=== PATIENT | female | born 1965 | race Caucasian/White ===

== ENCOUNTER 2017-05-01 10:33 | Day surgery (SDC) | payer BC ==
--- NOTE | 2017-05-01 08:42 | PCM.HP ---
H&P History of Present Illness - General Date of Service: 05/01/17 Admit Problem/Dx: small umbilical hernia, left periumbilical pain, family hx of colon cancer in sister, hx of nausea, hx of decreased appetite, hx of postprandial nausea with fatty meals, hx of upper abdominal pain, hx of lower abdominal pain, hx of elevated liver enzymes and elevated bilirubin, Uterine fibroids, adnexal cyst on abdomen/pelvis CT scans, thickened endometrium on TVUS Source of Information: Patient - History of Present Illness Initial Comments - Free Text/Narative: The patient was last evaluated in the clinic on 03/28/17. She denies any changes to her health history since her last visit, with the following exceptions. She reports that 8-10 days after the visit she started feeling normal again. No abdominal pain reported, has had resolution of this. No melenic stools. Her appetite is back to normal. She denies any nausea. She did finish the colonoscopy prep. She reports it did take 3-4 hours to work and did get nauseated with this, but then did have good results and resolution of nausea. She reports stools were clear this am. TVUS showed, "Multiple uterine fibroids, the largest measuring 29 x 26 mm.The endometrium is thickened measuring 25 mm. Consider hysteroscopy to exclude endometrial cancer." She has been evaluated by Dr. Kay and has a hysteroscopy and D&C planned today. She has no questions or concerns about procedure today. - Related Data Allergies/Adverse Reactions: Allergies Allergy/AdvReac Type Severity Reaction Status Date / Time No Known Allergies Allergy Verified 04/30/17 17:26 Home Medications: Home Meds Calcium Carb & Citrate/Vit D3 [Calcium + D3 ER Tablet] 1 tab PO DAILY 04/30/17 [ History] Fish Oil/[place]-3 Fatty Acids [Fish Oil 1,000 MG] 1,000 mg PO DAILY 04/30/17 [ History] Multivitamin [Multivitamins] 1 tab PO DAILY 04/30/17 [History] Zolpidem Tartrate [Zolpidem Tartrate] 5 mg PO BEDTIME PRN 04/30/17 [History] valACYclovir HCl [Valacyclovir] 500 mg PO ASDIRECTED PRN 04/30/17 [History] Past Medical History HEENT History: Reports: None Cardiovascular History: Reports: None Respiratory History: Reports: None Gastrointestinal History: Reports: Other (See Below) Other Gastrointestinal History: nausea, upper abominal pain, increased liver enzymes, increased bilirubin, umbilical hernia 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 History: Reports: Other (See Below) Other 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 History: 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 (See Below) Other OB/BYN History: breast pain Musculoskeletal History: Reports: None Neurological History: Reports: None Psychiatric History: Reports: Other (See Below) Other Psychiatric History: insomnia, fatigue Endocrine/Metabolic History: Reports: Other (See Below) Other Endocrine/Metabolic History: abnormal glucose Hematologic History: Reports: None Immunologic History: Reports: None Oncologic (Cancer) History: Reports: None Dermatologic History: Reports: Other (See Below) Other Dermatologic History: cold sores, skin rash - Past Surgical History Head Surgeries/Procedures: Reports: None GI Surgical History: Reports: Colonoscopy Female Surgical History: Reports: Breast Reduction Social & Family History - Tobacco Use Smoking Status *Q: Never Smoker - Caffeine Use Caffeine Use: Reports: None - Recreational Drug Use Recreational Drug Use: No Drug Use in Last 12 Months: No H&P Review of Systems - Review of Systems: Review Of Systems: See Below Free Text/Narrative: General: Reports: No Symptoms. Denies: Fever, Chills HEENT: Reports: No Symptoms Pulmonary: Reports: No Symptoms. Denies: Shortness of Breath, Wheezing Cardiovascular: Reports: No Symptoms. Denies: Chest Pain, Palpitations Gastrointestinal: Reports: No Symptoms. Denies: Abdominal Pain, Black Stool, Bloody Stool, Constipation, Diarrhea, Decreased Appetite, Hematochezia, Melena, Nausea, Vomiting 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: Reports: No Symptoms. Denies: Dysuria, Frequency, Burning, Pain Musculoskeletal: Reports: No Symptoms Skin: Reports: No Symptoms Psychiatric: Reports: No Symptoms Neurological: Reports: No Symptoms Hematologic/Lymphatic: Reports: No Symptoms Immunologic: Reports: No Symptoms Exam - Exam Exam: See Below - Exam General: Alert, Oriented HEENT: Conjunctiva Clear. No: Scleral Icterus Lungs: Clear to Auscultation, Normal Respiratory Effort Cardiovascular: Regular Rate, Regular Rhythm, Normal S1, Normal S2. No: Systolic Murmur, Diastolic Murmur Abdomen: Soft. No: Distention, Tenderness Extremities: Normal Inspection, Normal Pulses. No: Clubbing, Cyanosis, Edema Skin: Warm, Dry, Intact Neuro Extensive - Mental Status: Alert, Oriented x3, Normal Mood/Affect, Normal Cognition, Memory Intact Psychiatric: Alert, Normal Affect, Normal Mood *Q Meaningful Use (ADM) - VTE *Q VTE Criteria *Q: - Stroke *Q Stroke Criteria *Q: - AMI *Q AMI Criteria *Q: - Problem List (1) Periumbilical pain Status: Acute Current Visit: Yes (2) Family history of colon cancer SNOMED Code(s): 171501578 ICD Code: Z80.0 - FAMILY HISTORY OF MALIGNANT NEOPLASM OF DIGESTIVE ORGANS Status: Acute Current Visit: Yes (3) History of nausea SNOMED Code(s): 408173396 ICD Code: Z87.898 - PERSONAL HISTORY OF OTHER SPECIFIED CONDITIONS Status: Acute Current Visit: Yes (4) Decreased appetite SNOMED Code(s): 26339512 ICD Code: R63.0 - ANOREXIA Status: Acute Current Visit: Yes (5) Postprandial nausea SNOMED Code(s): 575676750 ICD Code: R11.0 - NAUSEA Status: Acute Current Visit: Yes (6) Abdominal pain SNOMED Code(s): 38559918 ICD Code: R10.9 - UNSPECIFIED ABDOMINAL PAIN Status: Acute Current Visit : Yes Problem List Initiated/Reviewed/Updated: Yes Orders Last 24hrs: Active Orders 24 hr Category Date Time Status Peripheral IV Care [RC] . DIRECTED Care 05/01/17 07:00 Active Verify Patient Consent Obtain [RC] ASDIRECTED Care 05/01/17 07:00 Active Lactated Ringers [Ringers, Lactated] 1,000 ml Med 05/01/17 07:00 Active IV ASDIRECTED Lidocaine 1%/Sod Bicarbonate [Buffered Lidocaine 1% in Med 05/01/17 07:00 Active NS 8.4%] 0.25 ml IV ONETIME PRN Sodium Chloride 0.9% [Saline Flush] Med 05/01/17 07:00 Active 10 ml FLUSH ASDIRECTED PRN Medication Administration Instruction [OM.PC] Routine Oth 05/01/17 07:00 Ordered Peripheral IV Insertion Adult [OM.PC] Routine Oth 05/01/17 07:00 Ordered Medication Orders Lactated Ringer's (Ringers, Lactated) 1,000 mls @ 125 mls/hr IV ASDIRECTED RUSLAN Stop: 05/01/17 23:00 Lidocaine/Sodium Bicarbonate (Buffered Lidocaine 1% In Ns 8.4%) 0.25 ml IV ONETIME PRN PRN Reason: Prior to IV Start Stop: 05/01/17 18:00 Sodium Chloride (Saline Flush) 10 ml FLUSH ASDIRECTED PRN PRN Reason: Keep Vein Open Stop: 05/01/17 18:00 Assessment/Plan Comment:: 51yr female with small umbilical hernia, left periumbilical pain, family hx of colon cancer in sister, hx of nausea, hx of decreased appetite, hx of postprandial nausea with fatty meals, hx of upper abdominal pain, hx of lower abdominal pain, hx of elevated liver enzymes and elevated bilirubin, need for diagnostic EGD and diagnostic colonoscopy. We discussed performing a diagnostic EGD and diagnostic colonoscopy. We discussed the risks and benefits of colonoscopy and EGD including pain, bleeding , need for additional procedures, damage to surrounding structures including colonic, esophageal or small bowel perforation risk of less than 1%, and risks of anesthesia. Informed consent was obtained. We discussed completion of the colonoscopy prep. Verbal and written instructions regarding the prep were reviewed Dr. Jere Kay will be performing a hysteroscopy with dilation and currettage today This patient was evaluated with Dr. Lili Carrillo, plan formulated above by Dr. Lili Carrillo. Melba Tomlin NP-C scribing for Dr. Lili Carrillo
--- NOTE | 2017-05-01 09:00 | PCM.OPNOTE ---
- General Post-Op/Procedure Note Date of Surgery/Procedure: 05/01/17 Operative Procedure(s): 1. Diagnostic EGD with cold forceps biopsy. 2. Diagnostic colonoscopy with cold forceps polypectomy Pre Op Diagnosis: History of abdominal pain, family history of colon cancer in sister, history of nausea Post-Op Diagnosis: 1. Mild gastritis. 2. Duodenitis (D1 and D2 only). 3. Mild esophagitis. 4. Diverticulosis. 5. Rectosigmoid colon polyp Anesthesia Technique: MAC Primary Surgeon: Lili Carrillo Anesthesia Provider: Vince Hawthorne Pathology: 1. Small bowel biopsy 2. Antral biopsy 3. Distal esophageal biopsy 4. Rectosigmoid colon polyp EBL in mLs: 2 Complications: None Condition: Good Free Text/Narrative:: FLUIDS: 250 mL crystalloid. INDICATION FOR PROCEDURE: The patient is a 51-year-old woman who was referred to me by Graciela Burgos PA-C for evaluation for left lower quadrant abdominal pain, right upper quadrant abdominal pain, post-prandial nausea and hematochezia. She also has a family history of colon cancer in her sister. She has not had a previous colonoscopy. Performing a diagnostic colonoscopy and EGD and the associated risks of the procedures had been discussed with the patient. The patient found these risks acceptable and agreed to proceed. DESCRIPTION OF PROCEDURE: The patient was taken to the operating room and underwent gynecologic procedures with Dr. Jere Kay. Please see his note for further details. When he had concluded his portions of the procedure, the patient was placed in the left lateral decubitus position. A bite block was placed. A standard Olympus gastroscope was inserted into the oropharynx and guided down the esophagus without difficulty. The gastroesophageal junction was appreciated at 39 cm from the teeth. There was no evidence of stricture or esophageal ulcerations. The scope was advanced into the stomach, and there was mild gastritis. The scope was passed into the proximal jejunum and the duodenum which showed mild duodenitis of D1 and D2 only with scattered petechiae. There were no ulcerations. The proximal jejunum was grossly normal in appearance. Multiple cold forceps biopsies were obtained of the proximal jejunum and duodenum. The scope was withdrawn into the antrum, and additional cold forceps biopsies were obtained. The remainder of the gastric body was examined, and there were no additional abnormalities. The scope was retroflexed , and there was no evidence of hiatal hernia. The scope was straightened and withdrawn to the GE junction. There was mild esophagitis with some irregularity of the Z-line. Additional cold forceps biopsies were obtained of the distal esophagus. The scope was withdrawn through the remainder of the esophagus and no further abnormalities were noted. The posterior oropharynx was grossly normal in appearance. The scope was fully withdrawn and attention was then turned to the colonoscopy. A digital rectal exam was performed which was unremarkable. A pediatric Olympus colonoscope was inserted into the rectum and guided under direct visualization to the appendiceal orifice and ileocecal valve. The scope was then slowly withdrawn through the colon. The quality of the prep was good. There was no evidence of angiodysplasias. There was diverticulosis of the descending and sigmoid colon with no evidence of diverticulitis. There was a small sessile rectosigmoid colon polyp which was removed in its entirety using cold forceps. The scope was withdrawn into the rectum and retroflexed. There was no significant prominence of the patient's internal hemorrhoids. The scope was straightened, the colon was desufflated,and the scope was withdrawn. The patient was awakened from sedation and transferred to the recovery room in stable condition having tolerated the procedure well. POSTOPERATIVE PLAN: I discussed with the patient's my intraoperative findings and recommendations. The patient will follow up in approximately 2 weeks to discuss pathology and how their symptoms are progressing. I have asked the patient to follow a GERD\gastritis and high fiber diet. We have started her on omeprazole 20 mg daily. The patient is to call with any worsening of symptoms or questions prior to the appointment.
[~2017-05-01 10:33] MED LIST: Lactated Ringers 1,000 ML IV SCH; Lidocaine 1%/Sod Bicarbonate in NS 8.4% 1 ML Syringe IV PRN; Sodium Chloride 0.9% 10 ML Syringe FLUSH PRN
--- NOTE | 2017-05-01 11:05 | PCM.PREANE ---
Preanesthetic Assessment - Procedure Proposed Procedure: Hysteroscopy/EGD/Colonoscopy - Anesthesia/Transfusion/Family Hx Anesthesia History: Prior Anesthesia Without Reaction Family History of Anesthesia Reaction: No Transfusion History: No Prior Transfusion(s) - Review of Systems General: Fatigue (Generalized) Pulmonary: No Symptoms Cardiovascular: No Symptoms Gastrointestinal: Other (Upper abdominal pain, umbilical hernia) Neurological: No Symptoms Other: Reports: Liver Problems (Increased liver enzymes and bilirubin) - Physical Assessment NPO Status Date: 05/01/17 NPO Status Time: 00:00 Pulse: 57 O2 Sat by Pulse Oximetry: 98 Respiratory Rate: 16 Blood Pressure: 152/79 Temperature: 36.4 C Height: 1.7 m Weight: 77 kg ASA Class: 2 Mental Status: Alert & Oriented x3 Airway Class: Mallampati = 2 Dentition: Reports: Normal Dentition Thyro-Mental Finger Breadths: 3 Mouth Opening Finger Breadths: 3 ROM/Head Extension: Full Lungs: Clear to auscultation, Normal respiratory effort Cardiovascular: Regular Rate, Regular Rhythm, No Murmurs - Allergies Allergies/Adverse Reactions: Allergies Allergy/AdvReac Type Severity Reaction Status Date / Time No Known Allergies Allergy Verified 04/30/17 17:26 - Blood Blood Available: No Product(s) Available: None - Anesthesia Plan Pre-Op Medication Ordered: None - Acknowledgements Anesthesia Type Planned: General Anesthesia Pt an Appropriate Candidate for the Planned Anesthesia: Yes Alternatives and Risks of Anesthesia Discussed w Pt/Guardian: Yes Pt/Guardian Understands and Agrees with Anesthesia Plan: Yes PreAnesthesia Questionnaire HEENT History: Reports: None Cardiovascular History: Reports: None Respiratory History: Reports: None Gastrointestinal History: Reports: Other (See Below) Other Gastrointestinal History: nausea, upper abominal pain, increased liver enzymes, increased bilirubin, umbilical hernia 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 History: Reports: Other (See Below) Other 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 History: 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 (See Below) Other OB/BYN History: breast pain Musculoskeletal History: Reports: None Neurological History: Reports: None Psychiatric History: Reports: Other (See Below) Other Psychiatric History: insomnia, fatigue Endocrine/Metabolic History: Reports: Other (See Below) Other Endocrine/Metabolic History: abnormal glucose Hematologic History: Reports: None Immunologic History: Reports: None Oncologic (Cancer) History: Reports: None Dermatologic History: Reports: Other (See Below) Other Dermatologic History: cold sores, skin rash - Past Surgical History Head Surgeries/Procedures: Reports: None GI Surgical History: Reports: Colonoscopy Female Surgical History: Reports: Breast Reduction - SUBSTANCE USE Smoking Status *Q: Never Smoker Days Per Week of Alcohol Use: 1 Number of Drinks Per Day: 2 Total Drinks Per Week: 2 Recreational Drug Use History: No - HOME MEDS Home Medications: Home Meds Calcium Carb & Citrate/Vit D3 [Calcium + D3 ER Tablet] 1 tab PO DAILY 04/30/17 [ History] Fish Oil/[place]-3 Fatty Acids [Fish Oil 1,000 MG] 1,000 mg PO DAILY 04/30/17 [ History] Hydrocodone/Acetaminophen [Hydrocodone-Acetaminophen 5-325] 1 tab PO Q4H PRN 05/11 [History] Multivitamin [Multivitamins] 1 tab PO DAILY 04/30/17 [History] Zolpidem Tartrate [Zolpidem Tartrate] 5 mg PO BEDTIME PRN 04/30/17 [History] valACYclovir HCl [Valacyclovir] 500 mg PO ASDIRECTED PRN 04/30/17 [History] - CURRENT (IN HOUSE) MEDS Current Meds: Current Medications Lactated Ringer's (Ringers, Lactated) 1,000 mls @ 125 mls/hr IV ASDIRECTED RUSLAN Stop: 05/01/17 23:00 Lidocaine/Sodium Bicarbonate (Buffered Lidocaine 1% In Ns 8.4%) 0.25 ml IV ONETIME PRN PRN Reason: Prior to IV Start Stop: 05/01/17 18:00 Sodium Chloride (Saline Flush) 10 ml FLUSH ASDIRECTED PRN PRN Reason: Keep Vein Open Stop: 05/01/17 18:00
[2017-05-01] MEDS ORDERED: fentaNYL 250 MCG/5 ML SDV ONE (11:34)
[2017-05-01] MEDS ORDERED: Propofol 200 MG/20 ML SDV ONE (11:34)
[2017-05-01] MEDS ORDERED: Midazolam 1 MG/ML 2 ML SDV ONE (11:34)
[2017-05-01] MEDS ORDERED: Ondansetron 4 MG/2 ML SDV ONE (11:36)
[2017-05-01] MEDS ORDERED: Succinylcholine/Normal Saline 100 MG/5 ML Syringe ONE (11:36)
[2017-05-01] MEDS ORDERED: Dexamethasone 4 MG/ML 5 ML MDV ONE (11:36)
[2017-05-01] MEDS ORDERED: Lidocaine 1% 4 ML ONE (11:36)
[2017-05-01] MEDS ORDERED: ceFAZolin 1 GM Vial ONE (12:23)
[2017-05-01] MEDS ORDERED: Lactated Ringers 1,000 ML ONE (12:36)
[2017-05-01] MEDS ORDERED: diphenhydrAMINE 50 MG/ML SDV IVPUSH PRN (12:47)
[2017-05-01] MEDS ORDERED: Ondansetron 4 MG/2 ML SDV IVPUSH PRN (12:47)
[2017-05-01] MEDS ORDERED: fentaNYL 100 MCG/2 ML SDV IVPUSH PRN (12:47)
--- NOTE | 2017-05-01 13:30 | PCM.POSTAN ---
POST ANESTHESIA ASSESSMENT - MENTAL STATUS Mental Status: alert, oriented - VITAL SIGNS Pulse Rate: 79 SaO2: 97 Resp Rate: 9 Blood Pressure: 153/79 Temperature: 36.1 C - RESPIRATORY Respiratory Status: respiratory rate WNL, airway patent, O2 saturation stable - CARDIOVASCULAR CV Status: pulse rate WNL, blood pressure stable - GASTROINTESTINAL GI Status: no symptoms - PAIN Pain Score: 0 - POST OP HYDRATION Hydration Status: adequate & stable
[2017-05-01] MEDS ORDERED: Meperidine PF 50 MG/ML Syringe IVPUSH PRN (14:00)
[2017-05-01 14:31] VITALS: BP 146/71
--- NOTE | 2017-05-06 18:04 | PCM.OPNOTE ---
- General Post-Op/Procedure Note Date of Surgery/Procedure: 05/01/17 Operative Procedure(s): Hysteroscopy, dilation and curettage Findings: Small polypoid structures within the uterus. Bimanual exam otherwise shows uterine enlargement uterine fibroids. No adnexal abnormalities noted. Pre Op Diagnosis: Menorrhagia, uterine fibroids Post-Op Diagnosis: Same with endometrial polyps Anesthesia Technique: General ET tube Primary Surgeon: Jere Kay Pathology: Endometrial curettings Complications: None Condition: Good Free Text/Narrative:: Procedure: Patient is taking Apri and placed in supine position on the table. She was given 2 g of Ancef preoperatively for infection prophylaxis and had sequential compression stockings in place for DVT prophylaxis. She is administered general endotracheal anesthesia. After adequate anesthesia she is placed in a dorsal lithotomy position and prepped and draped in usual fashion. The weighted speculum place in the vagina cervix is grasped with single-tooth tenaculum and dilated to the 5 mm size to allow a rigid 30 hysteroscope. This is then placed and using normal saline as a distending medium the endometrial cavity was assessed. No sub-endometrial fibroids were seen but a couple small endometrial polyps were present. Tubal ostia were visualized. The scope was then removed. Dilation and curettage was then performed. Cervix dilated small amount more to allow a medium-sized sharp curette to be introduced. Using a curette in a routine fashion systematic curettage of the endometrial cavity was then undertaken. This included removal of some small segments of tissue consistent with uterine polyps. At this point the procedure was discontinued. Patient was returned sponge addition after the cervix was released from the tenaculum. She is awakened from general endotracheal anesthesia only after Dr. Raya Carrillo completed her EGD and colonoscopy. Please see her operative report for details concerning the end of the case.
== END 2017-05-01 14:55 | disposition home or self-care (01) ==
LOC: JD.SDS 10:33
PROVIDERS: ATTEND Obstetrics & Gynecology
PROC: 0UDB8ZX Extraction of Endometrium, Via Natural or Artificial Opening Endoscopic, Diagnostic (ICD-10-PCS; principal; 2017-05-01)
DX: N92.0 Excessive and frequent menstruation with regular cycle (principal); D25.9 Leiomyoma of uterus, unspecified; N84.0 Polyp of corpus uteri; R10.11 Right upper quadrant pain; R11.0 Nausea; K92.1 Melena; R10.12 Left upper quadrant pain; K57.30 Diverticulosis of large intestine without perforation or abscess without bleeding; K62.1 Rectal polyp; Z80.0 Family history of malignant neoplasm of digestive organs
CPT/HCPCS: 36415; 43239; 45380; 58558; 81001; 81025; 85025; 88305; J0330; J0690; J1100; J2250; J2405; J3010; J7120; 00810; J2704

== ENCOUNTER 2018-01-05 17:48 | Emergency (ER) | payer BC ==
[2018-01-05 18:06] VITALS: BP 148/74
[2018-01-05] MEDS ORDERED: cefTRIAXone 1 GM Vial IM ONE (18:23)
[2018-01-05] MEDS ORDERED: cefTRIAXone 1 GM, Lidocaine 1% 2.1 ML IM SCH ×2 (18:30)
--- NOTE | 2018-01-05 18:32 | EDM.PDOC ---
ED HPI GENERAL MEDICAL PROBLEM - General Chief Complaint: Upper Extremity Injury/Pain Stated Complaint: R ELBOW PAIN AND SWELLING Time Seen by Provider: 01/05/18 18:10 Source of Information: Reports: Patient History Limitations: Reports: No Limitations - History of Present Illness INITIAL COMMENTS - FREE TEXT/NARRATIVE: Betty is a pleasant 52yo female presents ambulatory to ER with swollen, painful left elbow. Mild pain and erythema started maybe yesterday, today she noted swelling to be progressive. She noted small scab to olecranon area of elbow but not open or draining. She denies any injury that she is aware of to the elbow. No prior hx of olecranon bursitis or cellulitis to elbow. She was snow shoeing today, using poles- she noted worsening pain to the elbow after this. Swelling has progressed this afternoon. No hx of gout but does report occasional great toe pain. No hx of RA or other rheumatologic conditions. She is otherwise healthy. Right Elbow Pain Score (Numeric/FACES): 6 - Related Data Allergies Allergy/AdvReac Type Severity Reaction Status Date / Time No Known Allergies Allergy Verified 01/05/18 18:06 Home Meds: Home Meds Calcium Carb & Citrate/Vit D3 [Calcium + D3 ER Tablet] 1 tab PO DAILY 04/30/17 [ History] Fish Oil/Chloride-3 Fatty Acids [Fish Oil 1,000 MG] 1,000 mg PO DAILY 04/30/17 [ History] Multivitamin [Multivitamins] 1 tab PO DAILY 04/30/17 [History] Zolpidem Tartrate 5 mg PO BEDTIME PRN 04/30/17 [History] valACYclovir HCl [Valacyclovir] 500 mg PO ASDIRECTED PRN 04/30/17 [History] Past Medical History HEENT History: Reports: None Cardiovascular History: Reports: None Respiratory History: Reports: None Gastrointestinal History: Reports: Other (See Below) Other Gastrointestinal History: nausea, upper abominal pain, increased liver enzymes, increased bilirubin, umbilical hernia 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 History: Reports: Other (See Below) Other 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 History: 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 (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) Other OB/BYN History: breast pain Musculoskeletal History: Reports: None Neurological History: Reports: None Psychiatric History: Reports: Other (See Below) Other Psychiatric History: insomnia, fatigue Endocrine/Metabolic History: Reports: Other (See Below) Other Endocrine/Metabolic History: abnormal glucose Hematologic History: Reports: None Immunologic History: Reports: None Oncologic (Cancer) History: Reports: None Dermatologic History: Reports: Other (See Below) Other Dermatologic History: cold sores, skin rash - Past Surgical History Head Surgeries/Procedures: Reports: None GI Surgical History: Reports: Colonoscopy Female Surgical History: Reports: Breast Reduction Social & Family History - Tobacco Use Smoking Status *Q: Never Smoker - Caffeine Use Caffeine Use: Reports: Coffee - Alcohol Use Days Per Week of Alcohol Use: 1 Number of Drinks Per Day: 2 Total Drinks Per Week: 2 - Recreational Drug Use Recreational Drug Use: No Drug Use in Last 12 Months: No Review of Systems - Review of Systems Review Of Systems: See Below Constitutional: Reports: Chills (did have chills for around an hour prior to coming into ED). Denies: Fever Eyes: Reports: No Symptoms Ears: Reports: No Symptoms Mouth/Throat: Reports: No Symptoms Respiratory: Reports: No Symptoms Cardiovascular: Reports: No Symptoms GI/Abdominal: Reports: No Symptoms. Denies: Nausea Musculoskeletal: Reports: Joint Pain (lt elbow- see HPI) Skin: Reports: Erythema (lt elbow- see HPI), Wound (small 0.5cm scab to olecranon of lt elbow) Neurological: Reports: No Symptoms ED EXAM, GENERAL - Physical Exam Exam: See Below Exam Limited By: No Limitations General Appearance: Alert, WD/WN, No Apparent Distress Eye Exam: Bilateral Eye: EOMI, PERRL Ears: Normal External Exam, Hearing Grossly Normal Nose: Normal Inspection Throat/Mouth: Normal Inspection, Normal Teeth, Normal Voice Head: Atraumatic, Normocephalic Neck: Normal Inspection, Supple, Non-Tender Respiratory/Chest: No Respiratory Distress, Lungs Clear, Normal Breath Sounds Cardiovascular: Regular Rate, Rhythm, No Murmur Peripheral Pulses: 2+: Radial (L), Radial (R) (Female) Exam: Deferred Rectal (Female) Exam: Deferred Extremities: Normal Capillary Refill, Other (left elbow is with erythema to posterior elbow, swelling to olecranon bursa, moderate amount. Scab, 0.5cm noted to lateral olecranon but no open areas, no drainage. She can flex to 90 degrees then pain limits further flexion. She can fully extend but does cause pain on end motion. Pronation and supination is without pain. Distally CMS is + and = bilaterally. Lt axilla is without adenopathy or tenderness. ) Neurological: Alert, Oriented, Normal Cognition, Normal Reflexes Psychiatric: Normal Affect, Normal Mood Skin Exam: Warm, Dry, Intact (as noted above, scab to lt olecranon is intact and dry. ), Erythema (lt elbow/olecranon), Increased Warmth (olecranon and surrouonding posterior elbow). No: Lymphangitis (no red streaking noted), Rash Lymphatic: No Adenopathy Course - Vital Signs Last Recorded V/S: Last Vital Signs Temp 98.8 F 01/05/18 18:00 Pulse 71 01/05/18 18:00 Resp 18 01/05/18 18:00 BP 148/74 H 01/05/18 18:00 Pulse Ox 97 01/05/18 18:00 - Orders/Labs/Meds Orders: Active Orders 24 hr Category Date Time Status Elbow Min 3V Rt [CR] Stat Exams 01/05/18 18:34 Taken cefTRIAXone [Rocephin] 1 gm Med 01/05/18 18:30 Active Lidocaine 1% [Xylocaine 1%] 2.1 ml IM Q24H Medication Orders Ceftriaxone Sodium 1 gm/ (Lidocaine HCl 2.1 ml) 0 gm IM Q24H RUSLAN Last Admin: 01/05/18 18:38 Dose: 2.1 inj Labs: Laboratory Tests 01/05/18 01/05/18 Range/Units 18:34 18:34 WBC 9.44 (3.98-10.04) K/mm3 RBC 4.53 (3.98-5.22) M/mm3 Hgb 11.9 (11.2-15.7) gm/L Hct 38.0 (34.1-44.9) % MCV 83.9 (79.4-94.8) fl MCH 26.3 (25.6-32.2) pg MCHC 31.3 L (32.2-35.5) g/dl RDW Std Deviation 42.4 (36.4-46.3) fL Plt Count 293 (182-369) K/mm3 MPV 9.6 (9.4-12.3) fl Neut % (Auto) 74.2 H (34.0-71.1) % Lymph % (Auto) 14.6 L (19.3-51.7) % [place] % (Auto) 7.8 (4.7-12.5) % Eos % (Auto) 2.9 (0.7-5.8) Baso % (Auto) 0.4 (0.1-1.2) % Neut # (Auto) 7.00 H (1.56-6.13) K/mm3 Lymph # (Auto) 1.38 (1.18-3.74) K/mm3 [place] # (Auto) 0.74 H (0.24-0.36) K/mm3 Eos # (Auto) 0.27 (0.04-0.36) K/mm3 Baso # (Auto) 0.04 (0.01-0.08) K/mm3 Sodium 143 (136-145) mEq/L Potassium 3.9 (3.5-5.1) mEq/L Chloride 107 (98-107) mEq/L Carbon Dioxide 24 (21-32) mEq/L Anion Gap 15.9 H (5-15) BUN 16 (7-18) mg/dL Creatinine 1.2 H (0.55-1.02) mg/dL Est Cr Clr Drug Dosing 53.94 mL/min Estimated GFR (MDRD) 47 (>60) mL/min BUN/Creatinine Ratio 13.3 L (14-18) Glucose 150 H (74-106) mg/dL Uric Acid 4.8 (2.6-6.0) mg/dL Calcium 8.9 (8.5-10.1) mg/dL Total Bilirubin 0.5 (0.2-1.0) mg/dL AST 24 (15-37) U/L ALT 56 (14-59) U/L Alkaline Phosphatase 65 (46-116) U/L C-Reactive Protein 0.8 (<1.0) mg/dL Total Protein 7.1 (6.4-8.2) g/dl Albumin 3.8 (3.4-5.0) g/dl Globulin 3.3 gm/dL Albumin/Globulin Ratio 1.2 (1-2) Meds: Medications Generic Name Dose Route Start Last Admin Trade Name Freq PRN Reason Stop Dose Admin Ceftriaxone Sodium 1 gm/ 0 gm 01/05/18 18:30 01/05/18 18:38 Lidocaine HCl 2.1 ml IM 2.1 inj Q24H RUSLAN Administration Discontinued Medications Generic Name Dose Route Start Last Admin Trade Name Dean PRN Reason Stop Dose Admin Ceftriaxone Sodium 1 gm 01/05/18 18:23 01/05/18 18:27 Rocephin IM 01/05/18 18:24 Not Given ONETIME ONE - Re-Assessments/Exams Free Text/Narrative Re-Assessment/Exam: 01/05/18 18:33 Labs ordered; Rocephin IM to be given (patient was given choice of IM or IV, she elects IM) Will also obtain left elbow xray Reviewed cellulitis/olecranon bursitis diagnosis and treatment with patient. Free Text/Narrative Re-Assessment/Exam: 01/05/18 19:10 Labs reviewed: WBC, CRP, Uric Acid all WNL. Departure - Departure Time of Disposition: 19:10 Disposition: Home, Self-Care 01 Condition: Good Clinical Impression: Cellulitis of left elbow - Discharge Information Instructions: Cellulitis, Adult Referrals: PCP,None [Primary Care Provider] - Forms: ED Department Discharge Additional Instructions: Take antibiotic as directed; Augmentin 875mg one by mouth twice daily. Recommend probiotic once daily for one month Push fluids Avoid repetitive activity with left arm; avoid lifting, pushing, pulling, carrying anything >10lbs with left arm Follow up with Primary Care provider or Orthopedics for recheck within 5 days Return to ER if worsening or if needed. - My Orders Last 24 Hours: My Active Orders 01/05/18 18:30 cefTRIAXone [Rocephin] 1 gm Lidocaine 1% [Xylocaine 1%] 2.1 ml IM Q24H 01/05/18 18:34 Elbow Min 3V Rt [CR] Stat - Assessment/Plan Last 24 Hours: My Active Orders 01/05/18 18:30 cefTRIAXone [Rocephin] 1 gm Lidocaine 1% [Xylocaine 1%] 2.1 ml IM Q24H 01/05/18 18:34 Elbow Min 3V Rt [CR] Stat
--- NOTE | 2018-01-06 10:06 | CR ---
Right elbow: Four views of the right elbow were obtained. Comparison: No prior elbow study. Joint spaces are maintained. No joint effusion is seen. No acute fracture or other bony abnormality is identified. Impression: 1. No abnormality is identified on right elbow study. Diagnostic code #1
== END 2018-01-05 19:18 | disposition home or self-care (01) ==
LOC: JD.ED 17:48
DX: L03.114 Cellulitis of left upper limb (principal); Z79.899 Other long term (current) drug therapy
CPT/HCPCS: 36415; 73080; 80053; 84550; 85025; 86140; 96372; 99284; J0696; 99283

== ENCOUNTER 2018-11-30 10:10 | Day surgery (SDC) | payer BC ==
[2018-11-30] MEDS ORDERED: Lactated Ringers 1,000 ML IV SCH (10:45)
--- NOTE | 2018-11-30 10:50 | EDM.PDOC ---
ED HPI GENERAL MEDICAL PROBLEM - General Chief Complaint: Abdominal Pain Stated Complaint: MIDDLE OF ABDOMIN Time Seen by Provider: 11/30/18 10:45 Source of Information: Reports: Patient History Limitations: Reports: No Limitations - History of Present Illness INITIAL COMMENTS - FREE TEXT/NARRATIVE: 53-year-old female presents to the ED with diffuse periumbilical pain. Patient states she developed a super umbilical hernia about a month ago and it's been bothering her quite a bit the last 3 weeks. Usually she is able to lay down and push it back in but over the last 3 days it has been staying out in his becoming increasingly painful. He was quite active yesterday out horse shoeing without problems. She can stand fully erect. Bowels did work good this morning. She can eat and drink normally. No fever or chills. She is try to reduce the hernia but has been unsuccessful due to the severity of the pain. Has had no previous abdominal surgery. Patient has not eaten since yesterday. Onset: Gradual (Gradually worsening supraumbilical hernia with incarceration by history for 3 days.) Onset Date: 11/28/18 Duration: Day(s): (Cursory to supraumbilical hernia 3 days) Location: Reports: Abdomen Quality: Reports: Ache (Periumbilical pain particular a supraumbilical pain.), Other Severity: Moderate (Very tender to touch etc. 10) Improves with: Reports: Rest Worsens with: Reports: Movement Context: Denies: Activity, Exercise, Lifting, Sick Contact, Trauma, Other Associated Symptoms: Denies: Confusion, Chest Pain, Cough, cough w sputum, Diaphoresis, Fever/Chills, Headaches, Loss of Appetite, Malaise, Nausea/Vomiting , Rash, Seizure, Shortness of Breath, Syncope, Weakness Treatments COUNCILOR: Reports: Other (see below) Abdomen Pain Score (Numeric/FACES): 6 - Related Data Allergies Allergy/AdvReac Type Severity Reaction Status Date / Time No Known Allergies Allergy Verified 11/30/18 10:24 Home Meds: Home Meds . 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 She is age 53. She was a menopausal for 6 months but did have a period about a week ago that lasted about 6 days. This is considered perimenopausal bleeding area and Musculoskeletal History: Reports: None Neurological History: Reports: None Psychiatric History: Reports: Other (See Below) Other Psychiatric History: insomnia, fatigue Endocrine/Metabolic History: Reports: Other (See Below) Other Endocrine/Metabolic History: abnormal glucose Hematologic History: Reports: None Immunologic History: Reports: None Oncologic (Cancer) History: Reports: None Dermatologic History: Reports: Other (See Below) Other Dermatologic History: cold sores, skin rash - Past Surgical History Head Surgeries/Procedures: Reports: None GI Surgical History: Reports: Colonoscopy Female Surgical History: Reports: Breast Reduction Social & Family History - Tobacco Use Smoking Status *Q: Never Smoker - Caffeine Use Caffeine Use: Reports: Coffee - Recreational Drug Use Recreational Drug Use: No - Living Situation & Occupation Living situation: Reports: Occupation: Unemployed ED ROS GENERAL - Review of Systems Review Of Systems: See Below Constitutional: Denies: Fever, Chills, Malaise, Weakness, Fatigue, Decreased Appetite, Weight Loss HEENT: Reports: No Symptoms Respiratory: Reports: No Symptoms Cardiovascular: Reports: No Symptoms Endocrine: Reports: No Symptoms GI/Abdominal: Reports: Abdominal Pain (Supraumbilical hernia with incarceration 3 days). Denies: Constipation, Diarrhea, Decreased Appetite, Difficulty Swallowing, Distension, Flatus, Hematemesis, Hematochezia, Melena, Mucous in Stool : Reports: No Symptoms Musculoskeletal: Reports: No Symptoms Skin: Reports: No Symptoms Neurological: Reports: No Symptoms Psychiatric: Reports: No Symptoms Hematologic/Lymphatic: Reports: No Symptoms Immunologic: Reports: No Symptoms ED EXAM, GI/ABD - Physical Exam Exam: See Below Exam Limited By: Intoxication General Appearance: Alert, WD/WN, No Apparent Distress Eyes: Bilateral: Normal Appearance (No jaundice) Throat/Mouth: Normal Inspection, Normal Oropharynx Respiratory/Chest: No Respiratory Distress, Lungs Clear, Normal Breath Sounds, No Accessory Muscle Use, Chest Non-Tender Cardiovascular: Normal Peripheral Pulses, Regular Rate, Rhythm, No Edema, No Gallop, No Murmur, No Rub GI/Abdominal Exam: Tender ( has a palpable mass approximately 2.5 cm in diameter supraumbilically. This area is exquisitely tender to touch. I.e. incarcerated hernia supraumbilically. The overlying skin around this is mildly erythematous.), Abnormal Bowel Sounds (Mildly hyperactive bowel sounds.) Back Exam: Normal Inspection, Full Range of Motion. No: CVA Tenderness (L), CVA Tenderness (R) Extremities: Normal Inspection, Normal Range of Motion, Non-Tender, No Pedal Edema Neurological: Alert, Oriented, CN II-XII Intact, Normal Cognition, Normal Gait Psychiatric: Normal Affect, Normal Mood Skin Exam: Warm, Dry, Intact, Normal Color, No Rash EKG INTERPRETATION EKG Date: 11/30/18 Time: 15:02 Rhythm: NSR Rate (Beats/Min): 60 [place]: Normal P-Wave: Enlarged (Consider right atrial hypertrophy.) QRS: Other (Borderline criteria for left ventricular hypertrophy pattern) ST-T: Normal (Very mildly prolonged) QT: Prolonged EKG Interpretation Comments: Borderline ECG Course - Vital Signs Last Recorded V/S: Last Vital Signs Temp 36.3 C 11/30/18 14:47 Pulse 54 L 11/30/18 14:47 Resp 16 11/30/18 14:47 BP 149/85 H 11/30/18 14:47 Pulse Ox 100 11/30/18 14:47 - Orders/Labs/Meds Orders: Active Orders 24 hr Category Date Time Status Patient Status [ADT] Routine ADT 11/30/18 12:58 Active Ambulate [RC] ASDIRECTED Care 11/30/18 12:58 Active EKG Documentation Completion [RC] STAT Care 11/30/18 14:45 Active Height and Weight [RC] DAILY Care 11/30/18 12:58 Active Intake and Output [RC] QSHIFT Care 11/30/18 13:00 Active Oxygen Therapy [RC] PRN Care 11/30/18 12:58 Active Up ad Lety [RC] ASDIRECTED Care 11/30/18 12:58 Active VTE/DVT Education [RC] PER UNIT ROUTINE Care 11/30/18 12:58 Active Vital Signs [RC] Q4H Care 11/30/18 12:58 Active Nothing per Oral Now Diet [DIET] Diet 11/30/18 Lunch Active Heparin Sodium Med 11/30/18 13:00 Active 5,000 units SUBCUT Q8H Lactated Ringers [Ringers, Lactated] 1,000 ml Med 11/30/18 10:45 Active IV ASDIRECTED Ondansetron [Zofran] Med 11/30/18 13:01 Active 4 mg IVPUSH Q8H PRN Schedule Procedure [COMM] Urgent Oth 11/30/18 12:57 Ordered Sequential Compression Device [OM.PC] Per Unit Routine Oth 11/30/18 13:00 Ordered Resuscitation Status Routine Resus Stat 11/30/18 12:58 Ordered Medication Orders Heparin Sodium (Porcine) (Heparin Sodium) 5,000 units SUBCUT Q8H [facility] Last Admin: 11/30/18 14:55 Dose: 5,000 units Lactated Ringer's (Ringers, Lactated) 1,000 mls @ 125 mls/hr IV ASDIRECTED RUSLAN Last Admin: 11/30/18 11:11 Dose: 125 mls/hr Ondansetron HCl (Zofran) 4 mg IVPUSH Q8H PRN PRN Reason: Nausea/Vomiting Labs: Laboratory Tests 11/30/18 11/30/18 11/30/18 Range/Units 10:50 10:50 10:50 WBC 5.68 (3.98-10.04) K/mm3 RBC 4.69 (3.98-5.22) M/mm3 Hgb 14.3 (11.2-15.7) gm/L Hct 42.6 (34.1-44.9) % MCV 90.8 (79.4-94.8) fl MCH 30.5 (25.6-32.2) pg MCHC 33.6 (32.2-35.5) g/dl RDW Std Deviation 40.0 (36.4-46.3) fL Plt Count 263 (182-369) K/mm3 MPV 9.5 (9.4-12.3) fl Neutrophils % (Manual) 67 H (40-60) % Band Neutrophils % 0 (0-10) % Lymphocytes % (Manual) 27 (20-40) % Atypical Lymphs % 0 % Monocytes % (Manual) 3 (2-10) % Eosinophils % (Manual) 3 (0.7-5.8) % Basophils % (Manual) 0 L (0.1-1.2) Platelet Estimate Adequate RBC Morph Comment Normal Sodium 141 (136-145) mEq/L Potassium 4.3 (3.5-5.1) mEq/L Chloride 105 (98-107) mEq/L Carbon Dioxide 27 (21-32) mEq/L Anion Gap 13.3 (5-15) BUN 14 (7-18) mg/dL Creatinine 0.9 (0.55-1.02) mg/dL Est Cr Clr Drug Dosing 71.11 mL/min Estimated GFR (MDRD) > 60 (>60) mL/min BUN/Creatinine Ratio 15.6 (14-18) Glucose 101 (74-106) mg/dL Lactic Acid (0.4-2.0) mmol/L Calcium 9.0 (8.5-10.1) mg/dL Total Bilirubin 1.4 H (0.2-1.0) mg/dL AST 29 (15-37) U/L ALT 61 H (14-59) U/L Alkaline Phosphatase 62 (46-116) U/L C-Reactive Protein 0.6 (<1.0) mg/dL Total Protein 7.3 (6.4-8.2) g/dl Albumin 4.0 (3.4-5.0) g/dl Globulin 3.3 gm/dL Albumin/Globulin Ratio 1.2 (1-2) HCG, Qual Negative (NEGATIVE) 11/30/18 Range/Units 11:05 WBC (3.98-10.04) K/mm3 RBC (3.98-5.22) M/mm3 Hgb (11.2-15.7) gm/L Hct (34.1-44.9) % MCV (79.4-94.8) fl MCH (25.6-32.2) pg MCHC (32.2-35.5) g/dl RDW Std Deviation (36.4-46.3) fL Plt Count (182-369) K/mm3 MPV (9.4-12.3) fl Neutrophils % (Manual) (40-60) % Band Neutrophils % (0-10) % Lymphocytes % (Manual) (20-40) % Atypical Lymphs % % Monocytes % (Manual) (2-10) % Eosinophils % (Manual) (0.7-5.8) % Basophils % (Manual) (0.1-1.2) Platelet Estimate RBC Morph Comment Sodium (136-145) mEq/L Potassium (3.5-5.1) mEq/L Chloride (98-107) mEq/L Carbon Dioxide (21-32) mEq/L Anion Gap (5-15) BUN (7-18) mg/dL Creatinine (0.55-1.02) mg/dL Est Cr Clr Drug Dosing mL/min Estimated GFR (MDRD) (>60) mL/min BUN/Creatinine Ratio (14-18) Glucose (74-106) mg/dL Lactic Acid 0.9 (0.4-2.0) mmol/L Calcium (8.5-10.1) mg/dL Total Bilirubin (0.2-1.0) mg/dL AST (15-37) U/L ALT (14-59) U/L Alkaline Phosphatase (46-116) U/L C-Reactive Protein (<1.0) mg/dL Total Protein (6.4-8.2) g/dl Albumin (3.4-5.0) g/dl Globulin gm/dL Albumin/Globulin Ratio (1-2) HCG, Qual (NEGATIVE) Meds: Medications Generic Name Dose Route Start Last Admin Trade Name Freq PRN Reason Stop Dose Admin Heparin Sodium (Porcine) 5,000 units 11/30/18 13:00 11/30/18 14:55 Heparin Sodium SUBCUT 5,000 units Q8H RUSLAN Administration Lactated Ringer's 1,000 mls @ 125 mls/hr 11/30/18 10:45 11/30/18 11:11 Ringers, Lactated IV 125 mls/hr ASDIRECTED RUSLAN Administration Ondansetron HCl 4 mg 11/30/18 13:01 Zofran IVPUSH Q8H PRN Nausea/Vomiting Discontinued Medications Generic Name Dose Route Start Last Admin Trade Name Freq PRN Reason Stop Dose Admin Dexamethasone Confirm 11/30/18 15:00 Dexamethasone Administered 11/30/18 15:01 Dose 20 mg .ROUTE .STK-MED ONE Fentanyl Confirm 11/30/18 15:01 Sublimaze Administered 11/30/18 15:02 Dose 250 mcg .ROUTE .STK-MED ONE Hydromorphone HCl 1 mg 11/30/18 13:15 11/30/18 15:00 Dilaudid IVPUSH 11/30/18 13:16 1 mg ONETIME ONE Administration Hydromorphone HCl Confirm 11/30/18 15:00 Dilaudid Administered 11/30/18 15:01 Dose 0.5 mg .ROUTE .STK-MED ONE Lidocaine HCl Confirm 11/30/18 15:00 Xylocaine-Mpf 1% Administered 11/30/18 15:01 Dose 6 mls @ as directed .ROUTE .STK-MED ONE Lactated Ringer's Confirm 11/30/18 15:00 Ringers, Lactated Administered 11/30/18 15:01 Dose 1,000 mls @ as directed .ROUTE .STK-MED ONE Ketorolac Tromethamine 30 mg 11/30/18 11:53 11/30/18 12:00 Toradol IVPUSH 11/30/18 11:54 30 mg ONETIME ONE Administration Ketorolac Tromethamine Confirm 11/30/18 15:00 Toradol Administered 11/30/18 15:01 Dose 30 mg .ROUTE .STK-MED ONE Metoclopramide HCl 10 mg 11/30/18 13:15 11/30/18 14:57 Reglan IVPUSH 11/30/18 13:16 10 mg ONETIME ONE Administration Midazolam HCl Confirm 11/30/18 15:01 Versed 1 Mg/Ml Administered 11/30/18 15:02 Dose 2 mg .ROUTE .STK-MED ONE Ondansetron HCl Confirm 11/30/18 15:00 Zofran Administered 11/30/18 15:01 Dose 4 mg .ROUTE .STK-MED ONE Propofol Confirm 11/30/18 15:00 Diprivan 20 Ml Administered 11/30/18 15:01 Dose 200 mg .ROUTE .STK-MED ONE Rocuronium Wirtz Confirm 11/30/18 15:00 Zemuron Administered 11/30/18 15:01 Dose 50 mg .ROUTE .STK-MED ONE Succinylcholine Chloride Confirm 11/30/18 15:00 Succinylcholine In Ns Pf Administered 11/30/18 15:01 Dose 100 mg .ROUTE .STK-MED ONE - Radiology Interpretation Free Text/Narrative:: 53-year-old female presents to the ED with 3 day history of periumbilical pain. His had problems with a supra umbilical hernia for the last 3 or 4 weeks. Usually she is able to push it back in when she lies down. Over the last 3 days the hernia seems to become larger and now is become exquisitely painful over the last 24-48 hours. She is no longer able to reduce it. No associated nausea vomiting. Bowel function was normal this morning. She can stand fully erect. Examination reveals a 2.5 cm very tender mass supraumbilically. The overlying tissue of the abdominal wall was slightly erythematous. It is slightly warm to palpation suggesting underlying inflammatory process. Plan routine labs including a lactic acid. CT of the abdomen and pelvis without contrast as I suspect there is mesentery incarcerated in the hernia. Will ask auction clerk surgeon to see her in consultation. - Re-Assessments/Exams Free Text/Narrative Re-Assessment/Exam: 11/30/18 11:38 Total white count is 5.68 with 67% neutrophils no bands cells reported. Hemoglobin is 14.3 with hematocrit of 42.6. Platelet count 263,000. Sodium 141 with a potassium 4.3. Cord 105 with a bicarbonate 27. Anion gap is 13.3. BUN is 14 with a creatinine of 0.9. BUN is 15.6. Glucose 101 calcium 9.0. Bilirubin is 1.4 AST is 29 with an ALT of 61. 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 C-reactive protein is 0.6. Lactic acid is pending 11/30/18 11:38 CT scan of the abdomen and pelvis done without contrast suggests that there is fat within the umbilical hernia. Soft tissue density is also noted within this hernia this is felt to represent inflammation with no evidence of bowel extension into this hernia at this time. The liver appears to be within normal limits small hiatal hernia is appreciated. Spleen appears to be normal adrenal glands are normal pancreas is normal kidney show no hydronephrosis or mass. No ureteral calculus is identified aorta shows no aneurysm gallbladder contains no calcified gallstones. No retroperitoneal adenopathy or mesenteric abnormalities are seen. Uterus is bulky most likely representing fibroid change. Bone window settings were reviewed which shows disc space narrowing at L4-L5 with vacuum phenomena and mild endplate osteophytes. Lesser degenerative changes scattered within other portions of this lumbar spine. 11/30/18 11:40 Dr Chung is here we'll see the patient in consultation. 11/30/18 12:52 Abdominal hernia has not been successfully reduced. Dr. Chung is therefore considering taking her to surgery. patient has had nothing by mouth since last night. Lactic acid level did come back normal at 0.9. 11/30/18 13:15 so having quite a bit of pain at the umbilicus where the recurrent is an incarcerated hernia. Will give her Dilaudid 1 mg IV with Reglan 10 mg IV preoperatively. 11/30/18 14:07 The plan is to take her to the OR about 1430 hrs. today.OR has requested an ECG and a test. Departure - Departure Time of Disposition: 15:10 Disposition: DC/Tfer to [facility] Condition: Fair Clinical Impression: Incarcerated umbilical hernia - Discharge Information *PRESCRIPTION DRUG MONITORING PROGRAM REVIEWED*: Not Applicable *COPY OF PRESCRIPTION DRUG MONITORING REPORT IN PATIENT TK: Not Applicable - My Orders Last 24 Hours: My Active Orders 11/30/18 10:45 Lactated Ringers [Ringers, Lactated] 1,000 ml IV ASDIRECTED - Assessment/Plan Last 24 Hours: My Active Orders 11/30/18 10:45 Lactated Ringers [Ringers, Lactated] 1,000 ml IV ASDIRECTED
--- NOTE | 2018-11-30 11:26 | CT ---
CT abdomen and pelvis Technique: Multiple axial sections were obtained from above the kidneys inferiorly through the pubic symphysis. Intravenous and oral contrast not utilized. Comparison: No prior abdominal imaging is available. Findings: Umbilical hernia is identified. This contains fat. Soft tissue density is also noted within this hernia. This is felt to represent inflammation with no evidence of bowel extension into this hernia is seen. No additional abdominal wall hernia is seen. Visualized lung bases shows minimal atelectasis. Visualized noncontrast appearance of the liver appears within normal limits. Small hiatal hernia is noted. Spleen appears within normal limits. Adrenal glands show no nodule. Pancreas is within normal limits. Kidneys show no hydronephrosis or mass. No ureteral calculus is seen. Aorta shows no aneurysm. Gallbladder contains no calcified gallstones. No retroperitoneal adenopathy or mesenteric abnormalities are seen. Uterus is bulky most likely representing fibroid change. No free fluid or inflammatory change is seen. Bone window settings were reviewed which shows disc space narrowing at L4-L5 with vacuum phenomena and mild endplate osteophytes. Lesser degenerative change is scattered within other portions of the spine. Impression: 1. Fat-containing umbilical hernia containing soft tissue density presumably due to inflammation and incarceration of fat is a possibility. No bowel is seen within this hernia. 2. Other incidental findings as noted above. Diagnostic code #3
[2018-11-30] MEDS ORDERED: Ketorolac 30 MG/ML SDV IVPUSH ONE (11:53)
--- NOTE | 2018-11-30 12:30 | PCM.CONS ---
H&P History of Present Illness - General Date of Service: 11/30/18 Admit Problem/Dx: incarcerated umbilical hernia Source of Information: Patient, Provider History Limitations: Reports: No Limitations - History of Present Illness Initial Comments - Free Text/Narative: The patient is a 53-year-old lady who presents emergency department complaining of 3 weeks of increasing discomfort with her umbilical hernia. She reports having a long-standing umbilical hernia present years, but it became more symptomatic in the last 3 weeks. It was reducible but the patient on that she could not reduce it in the last day and half. She denies any stool changes and had a bowel movement this morning. She denies any nausea, vomiting. She denies any fever, chills. Upon arrival to the emergency department, attempted was made to reduce the local hernia. The patient was given analgesics as well as an ice pack, however , the hernia could not be reduced. Abdomen Pain Score (Numeric/FACES): 6 - Related Data Allergies/Adverse Reactions: Allergies Allergy/AdvReac Type Severity Reaction Status Date / Time No Known Allergies Allergy Verified 11/30/18 10:24 Home Medications: Home Meds . 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 (See Below) Other OB/BYN History: breast pain Musculoskeletal History: Reports: None Neurological History: Reports: None Psychiatric History: Reports: Other (See Below) Other Psychiatric History: insomnia, fatigue Endocrine/Metabolic History: Reports: Other (See Below) Other Endocrine/Metabolic History: abnormal glucose Hematologic History: Reports: None Immunologic History: Reports: None Oncologic (Cancer) History: Reports: None Dermatologic History: Reports: Other (See Below) Other Dermatologic History: cold sores, skin rash - Past Surgical History Head Surgeries/Procedures: Reports: None GI Surgical History: Reports: Colonoscopy Female Surgical History: Reports: Breast Reduction Social & Family History - Tobacco Use Smoking Status *Q: Never Smoker - Caffeine Use Caffeine Use: Reports: Coffee - Recreational Drug Use Recreational Drug Use: No - Living Situation & Occupation Living situation: Reports: Occupation: Unemployed H&P Review of Systems - Review of Systems: Review Of Systems: See Below General: Reports: No Symptoms HEENT: Reports: No Symptoms Pulmonary: Reports: No Symptoms Cardiovascular: Reports: No Symptoms Gastrointestinal: Reports: Abdominal Pain. Denies: Diarrhea, Decreased Appetite Musculoskeletal: Reports: No Symptoms Skin: Reports: No Symptoms Psychiatric: Reports: No Symptoms Neurological: Reports: No Symptoms Hematologic/Lymphatic: Reports: No Symptoms Immunologic: Reports: No Symptoms Exam - Exam Exam: See Below - Vital Signs Vital Signs: Last Vital Signs Temp 36.3 C 11/30/18 10:20 Pulse 54 L 11/30/18 10:20 Resp 16 11/30/18 10:20 BP 149/85 H 11/30/18 10:20 Pulse Ox 100 11/30/18 10:20 Weight: 81.647 kg - Exam General: Alert, Oriented HEENT: Conjunctiva Clear, EOMI Neck: Supple Lungs: Clear to Auscultation, Normal Respiratory Effort Cardiovascular: Regular Rate GI/Abdominal Exam: Normal Bowel Sounds, Soft, Hernia (at umbilicus, incarcerated with surrounding erythema) Extremities: Normal Inspection Skin: Warm, Dry, Intact Neurological: Cranial Nerves Intact Neuro Extensive - Mental Status: Alert, Normal Mood/Affect - Patient Data Lab Results Last 24 hrs: Laboratory Results - last 24 hr 11/30/18 11/30/18 11/30/18 Range/Units 10:50 10:50 11:05 WBC 5.68 (3.98-10.04) K/mm3 RBC 4.69 (3.98-5.22) M/mm3 Hgb 14.3 (11.2-15.7) gm/L Hct 42.6 (34.1-44.9) % MCV 90.8 (79.4-94.8) fl MCH 30.5 (25.6-32.2) pg MCHC 33.6 (32.2-35.5) g/dl RDW Std Deviation 40.0 (36.4-46.3) fL Plt Count 263 (182-369) K/mm3 MPV 9.5 (9.4-12.3) fl Neutrophils % (Manual) 67 H (40-60) % Band Neutrophils % 0 (0-10) % Lymphocytes % (Manual) 27 (20-40) % Atypical Lymphs % 0 % Monocytes % (Manual) 3 (2-10) % Eosinophils % (Manual) 3 (0.7-5.8) % Basophils % (Manual) 0 L (0.1-1.2) Platelet Estimate Adequate RBC Morph Comment Normal Sodium 141 (136-145) mEq/L Potassium 4.3 (3.5-5.1) mEq/L Chloride 105 (98-107) mEq/L Carbon Dioxide 27 (21-32) mEq/L Anion Gap 13.3 (5-15) BUN 14 (7-18) mg/dL Creatinine 0.9 (0.55-1.02) mg/dL Est Cr Clr Drug Dosing 71.11 mL/min Estimated GFR (MDRD) > 60 (>60) mL/min BUN/Creatinine Ratio 15.6 (14-18) Glucose 101 (74-106) mg/dL Lactic Acid 0.9 (0.4-2.0) mmol/L Calcium 9.0 (8.5-10.1) mg/dL Total Bilirubin 1.4 H (0.2-1.0) mg/dL AST 29 (15-37) U/L ALT 61 H (14-59) U/L Alkaline Phosphatase 62 (46-116) U/L C-Reactive Protein 0.6 (<1.0) mg/dL Total Protein 7.3 (6.4-8.2) g/dl Albumin 4.0 (3.4-5.0) g/dl Globulin 3.3 gm/dL Albumin/Globulin Ratio 1.2 (1-2) Result Diagrams: 11/30/18 10:50 11/30/18 10:50 Consult PN Assessment/Plan Procedures: Procedures ASSAY GLUCOSE BLOOD QUANT (10/30/16) ASSAY OF BLOOD/URIC ACID (01/05/18) ASSAY THYROID STIM HORMONE (03/18/18) BREAST TOMOSYNTHESIS BI (08/08/18) C-REACTIVE PROTEIN (01/05/18) COLONOSCOPY AND BIOPSY (05/01/17) COMP SCREEN MAMMOGRAM ADD-ON (11/13/16) COMPLETE CBC W/AUTO DIFF WBC (03/18/18) COMPREHEN METABOLIC PANEL (03/18/18) COMPUTER DX MAMMOGRAM ADD-ON (08/12/14) EGD BIOPSY SINGLE/MULTIPLE (05/01/17) EMERGENCY DEPT VISIT (01/05/18) GLYCOSYLATED HEMOGLOBIN TEST (03/19/18) HYSTEROSCOPY BIOPSY (05/01/17) LIPID PANEL (03/18/18) ROUTINE VENIPUNCTURE (03/19/18) SCR MAMMO BI INCL CAD (08/08/18) THER/PROPH/DIAG INJ SC/IM (01/05/18) TISSUE EXAM BY PATHOLOGIST (05/01/17) ULTRASOUND BREAST COMPLETE (03/01/15) URINALYSIS AUTO W/SCOPE (05/01/17) URINE TEST (05/01/17) US EXAM BREAST(S) (08/12/14) VITAMIN D 25 HYDROXY (10/30/16) X-RAY EXAM OF ELBOW (01/05/18) (1) Incarcerated umbilical hernia SNOMED Code(s): 665074146 Code(s): K42.0 - UMBILICAL HERNIA WITH OBSTRUCTION, WITHOUT GANGRENE Current Visit: Yes Problem List Initiated/Reviewed/Updated: Yes Plan: 53-year-old female with incarcerated umbilical hernia. Attempt at reduction was unsuccessful. CT scan of abdomen and pelvis does not indicate presence of bowel within the hernia. - Will plan for open umbilical hernia repair urgently. - Will keep nothing by mouth with IV fluids - We will not give any antibiotics at this time - Admit for observation Fernanda Solomon MD General Surgery
[2018-11-30] MEDS ORDERED: Heparin Sodium 5,000 Units/ML Vial SUBCUT SCH (13:00)
[2018-11-30] MEDS ORDERED: Ondansetron 4 MG/2 ML SDV IVPUSH PRN ×2 (13:01→17:08)
[2018-11-30] MEDS ORDERED: Metoclopramide 10 MG/2 ML SDV IVPUSH ONE (13:15)
[2018-11-30] MEDS ORDERED: HYDROmorphone 1 MG/ML Syringe IVPUSH ONE (13:15)
--- NOTE | 2018-11-30 14:25 | PCM.PREANE ---
Preanesthetic Assessment - Anesthesia/Transfusion/Family Hx Anesthesia History: Prior Anesthesia Without Reaction Type of Anesthesia Reaction: Excessive Nausea/Vomiting Family History of Anesthesia Reaction: No Transfusion History: No Prior Transfusion(s) Intubation History: Unknown - Review of Systems General: No Symptoms Pulmonary: No Symptoms (ETOH: Occasionaly) Cardiovascular: No Symptoms (Borderline HTN) Gastrointestinal: No Symptoms (GERD/Hiatal hernia), Abdominal Pain (hiatal henia noted) Neurological: No Symptoms (Motion sickness) Other: Reports: None, Liver Problems (elevated Liver enzymes noted) - Physical Assessment NPO Status Date: 11/30/18 NPO Status Time: 07:00 Pulse: 54 O2 Sat by Pulse Oximetry: 100 Respiratory Rate: 16 Blood Pressure: 149/85 Temperature: 36.3 C Vital Signs: Last Vital Signs Temp 36.3 C 11/30/18 10:20 Pulse 54 L 11/30/18 10:20 Resp 16 11/30/18 10:20 BP 149/85 H 11/30/18 10:20 Pulse Ox 100 11/30/18 10:20 Height: 1.7 m Weight: 81.647 kg ASA Class: 1E Mental Status: Alert & Oriented x3 Airway Class: Mallampati = 2 Dentition: Reports: Normal Dentition, Caries Thyro-Mental Finger Breadths: 3 Mouth Opening Finger Breadths: 3 ROM/Head Extension: Full Lungs: Clear to Auscultation, Normal Respiratory Effort Cardiovascular: Regular Rate, Regular Rhythm, No Murmurs - Lab Values: Laboratory Last Values WBC 5.68 K/mm3 (3.98-10.04) 11/30/18 10:50 RBC 4.69 M/mm3 (3.98-5.22) 11/30/18 10:50 Hgb 14.3 gm/L (11.2-15.7) 11/30/18 10:50 Hct 42.6 % (34.1-44.9) 11/30/18 10:50 MCV 90.8 fl (79.4-94.8) 11/30/18 10:50 MCH 30.5 pg (25.6-32.2) 11/30/18 10:50 MCHC 33.6 g/dl (32.2-35.5) 11/30/18 10:50 RDW Std Deviation 40.0 fL (36.4-46.3) 11/30/18 10:50 Plt Count 263 K/mm3 (182-369) 11/30/18 10:50 MPV 9.5 fl (9.4-12.3) 11/30/18 10:50 Neutrophils % (Manual) 67 % (40-60) H 11/30/18 10:50 Band Neutrophils % 0 % (0-10) 11/30/18 10:50 Lymphocytes % (Manual) 27 % (20-40) 11/30/18 10:50 Atypical Lymphs % 0 % 11/30/18 10:50 Monocytes % (Manual) 3 % (2-10) 11/30/18 10:50 Eosinophils % (Manual) 3 % (0.7-5.8) 11/30/18 10:50 Basophils % (Manual) 0 (0.1-1.2) L 11/30/18 10:50 Platelet Estimate Adequate 11/30/18 10:50 RBC Morph Comment Normal 11/30/18 10:50 Sodium 141 mEq/L (136-145) 11/30/18 10:50 Potassium 4.3 mEq/L (3.5-5.1) 11/30/18 10:50 Chloride 105 mEq/L (98-107) 11/30/18 10:50 Carbon Dioxide 27 mEq/L (21-32) 11/30/18 10:50 Anion Gap 13.3 (5-15) 11/30/18 10:50 BUN 14 mg/dL (7-18) 11/30/18 10:50 Creatinine 0.9 mg/dL (0.55-1.02) 11/30/18 10:50 Est Cr Clr Drug Dosing 71.11 mL/min 11/30/18 10:50 Estimated GFR (MDRD) > 60 mL/min (>60) 11/30/18 10:50 BUN/Creatinine Ratio 15.6 (14-18) 11/30/18 10:50 Glucose 101 mg/dL (74-106) 11/30/18 10:50 Lactic Acid 0.9 mmol/L (0.4-2.0) 11/30/18 11:05 Calcium 9.0 mg/dL (8.5-10.1) 11/30/18 10:50 Total Bilirubin 1.4 mg/dL (0.2-1.0) H 11/30/18 10:50 AST 29 U/L (15-37) 11/30/18 10:50 ALT 61 U/L (14-59) H 11/30/18 10:50 Alkaline Phosphatase 62 U/L (46-116) 11/30/18 10:50 C-Reactive Protein 0.6 mg/dL (<1.0) 11/30/18 10:50 Total Protein 7.3 g/dl (6.4-8.2) 11/30/18 10:50 Albumin 4.0 g/dl (3.4-5.0) 11/30/18 10:50 Globulin 3.3 gm/dL 11/30/18 10:50 Albumin/Globulin Ratio 1.2 (1-2) 11/30/18 10:50 Above labs reviewed and noted and within acceptable ranges to proceed with scheduled procedure. - Imaging/EKG Impressions: EKG: SR rate= 60, borderline criteria for LVH, QT's is mildly prolonged, consider Right atrial hypertrophy. - Allergies Allergies/Adverse Reactions: Allergies Allergy/AdvReac Type Severity Reaction Status Date / Time No Known Allergies Allergy Verified 11/30/18 10:24 - Anesthesia Plan Pre-Op Medication Ordered: None - Acknowledgements Anesthesia Type Planned: General Anesthesia Pt an Appropriate Candidate for the Planned Anesthesia: Yes Alternatives and Risks of Anesthesia Discussed w Pt/Guardian: Yes Pt/Guardian Understands and Agrees with Anesthesia Plan: Yes PreAnesthesia Questionnaire HEENT History: Reports: None Cardiovascular History: Reports: None Respiratory History: Reports: None Gastrointestinal History: Reports: Other (See Below) Other Gastrointestinal History: nausea, upper abominal pain, increased liver enzymes, increased bilirubin, umbilical hernia 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 History: Reports: Other (See Below) Other 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 History: breast pain [employer] History: Reports: Other (See Below) Other OB/BYN History: breast pain Musculoskeletal History: Reports: None Neurological History: Reports: None Psychiatric History: Reports: Other (See Below) Other Psychiatric History: insomnia, fatigue Endocrine/Metabolic History: Reports: Other (See Below) Other Endocrine/Metabolic History: abnormal glucose Hematologic History: Reports: None Immunologic History: Reports: None Oncologic (Cancer) History: Reports: None Dermatologic History: Reports: Other (See Below) Other Dermatologic History: cold sores, skin rash - Past Surgical History Head Surgeries/Procedures: Reports: None GI Surgical History: Reports: Colonoscopy Female Surgical History: Reports: Breast Reduction - SUBSTANCE USE Smoking Status *Q: Never Smoker Recreational Drug Use History: No - HOME MEDS Home Medications: Home Meds . [No Known Home Meds] 11/30/18 [History] - CURRENT (IN HOUSE) MEDS Current Meds: Current Medications Heparin Sodium (Porcine) (Heparin Sodium) 5,000 units SUBCUT Q8H [facility] Lactated Ringer's (Ringers, Lactated) 1,000 mls @ 125 mls/hr IV ASDIRECTED [facility] Last Admin: 11/30/18 11:11 Dose: 125 mls/hr Ondansetron HCl (Zofran) 4 mg IVPUSH Q8H PRN PRN Reason: Nausea/Vomiting Discontinued Medications Hydromorphone HCl (Dilaudid) 1 mg IVPUSH ONETIME ONE Stop: 11/30/18 13:16 Ketorolac Tromethamine (Toradol) 30 mg IVPUSH ONETIME ONE Stop: 11/30/18 11:54 Last Admin: 11/30/18 12:00 Dose: 30 mg Metoclopramide HCl (Reglan) 10 mg IVPUSH ONETIME ONE Stop: 11/30/18 13:16
[2018-11-30] MEDS ORDERED: Ketorolac 30 MG/ML SDV ONE (15:00)
[2018-11-30] MEDS ORDERED: Dexamethasone 4 MG/ML 5 ML MDV ONE (15:00)
[2018-11-30] MEDS ORDERED: Rocuronium 50 MG/5 ML Vial ONE (15:00)
[2018-11-30] MEDS ORDERED: Succinylcholine/Normal Saline 100 MG/5 ML Syringe ONE (15:00)
[2018-11-30] MEDS ORDERED: Ondansetron 4 MG/2 ML SDV ONE (15:00)
[2018-11-30] MEDS ORDERED: Propofol 200 MG/20 ML SDV ONE (15:00)
[2018-11-30] MEDS ORDERED: Lactated Ringers 1,000 ML ONE (15:00)
[2018-11-30] MEDS ORDERED: Lidocaine 1% 6 ML ONE (15:00)
[2018-11-30] MEDS ORDERED: HYDROmorphone 0.5 MG/0.5 ML Syringe ONE (15:00)
[2018-11-30] MEDS ORDERED: Midazolam 1 MG/ML 2 ML SDV ONE (15:01)
[2018-11-30] MEDS ORDERED: fentaNYL 250 MCG/5 ML SDV ONE (15:01)
[2018-11-30] MEDS: Bupivacaine 0.5%/EPINEPHrine 1:200,000 50 ML MDV ONE ×2 (16:16→17:04)
[2018-11-30] MEDS: Lidocaine 1% with EPINEPHrine 1:100,000 20 ML MDV ONE ×2 (16:16→17:04)
[2018-11-30] MEDS ORDERED: Scopolamine 1.5 MG Transdermal Patch TRDERM ONE (16:35)
[2018-11-30] MEDS ORDERED: Haloperidol Lactate 5 MG/ML SDV IVPUSH ONE (17:08)
[2018-11-30] MEDS ORDERED: ePHEDrine 50 MG/ML SDV IVPUSH PRN (17:08)
[2018-11-30] MEDS ORDERED: fentaNYL 100 MCG/2 ML SDV IVPUSH PRN (17:08)
[2018-11-30] MEDS ORDERED: HYDROmorphone 0.5 MG/0.5 ML Syringe IVPUSH PRN (17:08)
[2018-11-30] MEDS ORDERED: diphenhydrAMINE 50 MG/ML SDV IVPUSH PRN (17:08)
[2018-11-30] MEDS ORDERED: Phenylephrine 1 MG in Sodium Chloride 0.9% 10 ML IV SCH (17:15)
[2018-11-30] MEDS ORDERED: Phenylephrine/Normal Saline 100 MCG/ML 10 ML Syringe ONE (17:22)
[2018-11-30] MEDS ORDERED: Neostigmine Methylsulfate 1 MG/ML 5 ML Syringe ONE (17:27)
--- NOTE | 2018-11-30 18:01 | PCM.OPNOTE ---
- General Post-Op/Procedure Note Date of Surgery/Procedure: 11/30/18 Operative Procedure(s): open umbilical hernia repair Findings: incarcerated and necrosed omentum with omental torsion Pre Op Diagnosis: incarcerated umbilical hernia Post-Op Diagnosis: Same Anesthesia Technique: General ET Tube Primary Surgeon: Fernanda Solomon Anesthesia Provider: Moraima Diaz Pathology: Umbilical hernia contents Fluid Replacement, Intraop: 1,200 Output, Urine Amount: 0 EBL in mLs: 10 Complications: None apparent Condition: Good
--- NOTE | 2018-11-30 18:05 | PCM.POSTAN ---
POST ANESTHESIA ASSESSMENT - MENTAL STATUS Mental Status: Alert - VITAL SIGNS Pulse Rate: 83 SaO2: 99 (2LPM nasal cannula) Resp Rate: 12 Blood Pressure: 164/76 Temperature: 36.5 C - RESPIRATORY Respiratory Status: Respiratory Rate WNL, Airway Patent, O2 Saturation Stable, Supplemental Oxygen - CARDIOVASCULAR CV Status: Pulse Rate WNL, Blood Pressure Stable - GASTROINTESTINAL GI Status: No Symptoms - POST OP HYDRATION Hydration Status: Adequate & Stable
--- NOTE | 2018-11-30 18:12 | PCM.PRNOTE ---
- Free Text/Narrative Note: Operative Report Date of surgery: November 30 2017 Preoperative diagnosis: Incarcerated Umbilical hernia Postoperative diagnosis: same Procedure: Open umbilical hernia repair Surgeon: Dr. Fernanda Solomon Anesthesia: Gen. with ET tube Report Programmer: Andreas Diaz CRNA Estimated blood loss: 10 mL IV fluids: 1200 mL Urine output: , 0 mL Drains and lines: None Findings: Incarcerated umbilical hernia with necrosis omentum and omental torsion Pathology: Umbilical hernia contents Indication for the procedure: Visualization is a 53-year-old female presented to the emergency department complaining of approximately 36 hours of very tender umbilicus. She has a long-standing umbilical hernia. The present for years. It is usually reducible but the patient was unable to reduce the hernia. After attempting reduction the emergency department, she was consented for an open umbilical hernia repair. After discussion of the risks, her written consent was obtained. Description of the procedure: Patient was taken to the operating room and placed in supine position on the operating table. SCD boots were placed and functional prior to the start for his procedure. The patient had administration of Ancef 2 g per SCIP protocol. She had successful induction of general anesthesia and was intubated without difficulty. She was then prepped and draped in standard surgical fashion. A surgical timeout was performed. We began by infiltrating the infraumbilical skin with local anesthetic. We then marked a curvilinear incision in the infraumbilical fold. This was incised using a scalpel device. We proceeded to dissect bluntly to the level of the fascia in the infraumbilical area. The hernia was readily apparent. We then dissected free the skin from the hernia contents and were able to identify the hernia bulging through the defect. We then proceeded to dissect free the fibrous attachments surrounding the hernia. The fascial opening was then increased using the Bovie device to facilitate movement of the herniated contents. We were able to draw the hernia sac and contents into the surgical field. Once we had dissected free the hernia sac using Bovie device, we were able to pull the omentum into the field. It was evident that there was no omental torsion. The necrosed area of omentum was then removed using a Bovie device. We then inspected the area. There was good hemostasis. We cleard the fascia and proceeded to close the fascial defect using [id number] sutures of 0 Ethibond. These were tied down and closed the defect well. The umbilical skin was then tacked down to the fascia using a 3-0 Vicryl suture to re-create the umbilicus. The incision was then closed using a 4-0 Monocryl suture. Additional local anesthetic was infiltrated into the incision and fascia before the closure was completed. The skin was then covered with Dermabond surgical glue. All sponge and needle counts correct. The patient tolerated the procedure well and was extubated without difficulty. She was transported to the PACU in stable condition. Fernanda Solomon MD General Surgery
[2018-11-30] MEDS ORDERED: Ibuprofen 600 MG Tab PO PRN (18:18)
[2018-11-30] MEDS ORDERED: Acetaminophen/HYDROcodone 325-5 MG Tab PO PRN ×2 (18:18→18:38)
--- NOTE | 2018-11-30 19:01 | PCM48HPAN ---
Post Anesthesia Note - EVALUATION WITHIN 48HRS OF ANESTHETIC Vital Signs in Normal Range: Yes Patient Participated in Evaluation: Yes Respiratory Function Stable: Yes Airway Patent: Yes Cardiovascular Function Stable: Yes Hydration Status Stable: Yes Pain Control Satisfactory: Yes Nausea and Vomiting Control Satisfactory: Yes Mental Status Recovered: Yes
[2018-11-30] MEDS ORDERED: Haloperidol Lactate 5 MG/ML SDV ONE (19:20)
[2018-11-30 19:59] VITALS: BP 134/78
== END 2018-11-30 20:00 | disposition home or self-care (01) ==
LOC: JD.ED 10:10 → JD.SDS 14:36
PROVIDERS: ATTEND Surgery
DX: K42.0 Umbilical hernia with obstruction, without gangrene (principal); K55.069 Acute infarction of intestine, part and extent unspecified
CPT/HCPCS: 36415; 49587; 74176; 80053; 83605; 84703; 85007; 85027; 86140; 93005; 96361; 96374; 96375; 99285; A9270; J0330; J1100; J1170; J1630; J1644; J1885; J2250; J2370; J2405; J2704; J2710; J2765; J3010; J3490; J7120; 00752; 99284; J2001

== ENCOUNTER 2024-08-18 06:31 | Emergency (ER) | payer BC ==
[2024-08-18 07:00] LABS: HEMATOCRIT 40.7 % (37.0-47.0); MEAN CORPUSCULAR HEMOGLOBIN 30.8 pg (28.0-32.0); MEAN CORPUSCULAR HGB CONC 34.4 g/dl (32.0-36.0); MEAN CORPUSCULAR VOLUME 89.5 fl (83.0-99.0); RED BLOOD CELL COUNT 4.55 M/mm3 (4.10-5.30); WHITE BLOOD CELL COUNT,WBC 3.19 K/mm3 (3.9-11.3)
[2024-08-18 07:09] LABS: PLATELET COUNT,PLT 151 K/mm3 (150-400)
[2024-08-18] MEDS: Sodium Chloride 0.9% 1,000 ML IV ONE (07:21)
[2024-08-18] MEDS: Ondansetron 4 MG/2 ML SDV IVPUSH ONE (07:21)
[2024-08-18] MEDS: Sodium Chloride 0.9% 10 ML Syringe FLUSH PRN (07:23)
[2024-08-18 07:27] LABS: BAND PERCENT MAN 0 % (0-10); BASOPHILS PERCENT MAN 1 (0.1-1.2); EOSINOPHILS PERCENT MAN 0 % (0.7-5.8); LYMPHOCYTES % ATYPICAL MANUAL 0 %; LYMPHOCYTES PERCENT MAN 18 % (20-40); MONOCYTES PERCENT MAN 7 % (2-10)
[2024-08-18 07:28] LABS: OVALOCYTES 1+ SLIGHT; STOMATOCYTES 1+ SLIGHT
[2024-08-18 07:29] LABS: PLATELET COUNT ESTIMATE ADEQUATE
[2024-08-18 07:33] LABS: INR 1.03; PROTHROMBIN TIME 10.9 SECONDS (9.7-12.0)
[2024-08-18 07:39] LABS: CORONAVIRUS COVID-19 NAA NEGATIVE (NEGATIVE); INFLUENZA A NAA NEGATIVE (NEGATIVE); RESPIRATORY SYNCYTIAL VIR NAA NEGATIVE (NEGATIVE)
[2024-08-18 07:42] LABS: LACTIC ACID 0.6 mmol/L (0.4-2.0)
[2024-08-18 07:51] LABS: A/G RATIO 1.2 (1-2); ALBUMIN 3.8 g/dl (3.4-5.0); ANION GAP 12.9 (5-15); BILIRUBIN TOTAL 1.4 mg/dL (0.2-1.0); BUN/CREATININE RATIO 15.6 (14-18); C-REACTIVE PROTEIN 3.99 mg/dL (<0.30); CALCIUM 8.9 mg/dL (8.5-10.1); CREATININE 0.9 mg/dL (0.55-1.02); EST CRCL DRUG DOSING (CG) 63.78 mL/min; POTASSIUM,K 3.9 mEq/L (3.5-5.1); TSH 0.146 uIU/mL (0.358-3.74)
[2024-08-18 08:09] LABS: T4 FREE 1.04 ng/dL (0.76-1.46)
[2024-08-18 09:08] LABS: APPEARANCE,URINE CLEAR (Clear); BILIRUBIN,URINE NEGATIVE (Negative); COLOR,URINE YELLOW (Yellow); GLUCOSE,URINE NEGATIVE (Negative); KETONES,URINE 1+ (Negative); LEUKOCYTE ESTERASE,URINE 1+ (Negative); NITRITE,URINE NEGATIVE (Negative); OCCULT BLOOD,URINE NEGATIVE (Negative); PH,URINE 6.5 (5.0-8.0); PROTEIN,URINE NEGATIVE (Negative); UROBILINOGEN,URINE 0.2 (0.2-1.0)
[2024-08-18 09:16] LABS: BACTERIA,URINE MODERATE /hpf (FEW); MUCUS,URINE FEW /hpf (FEW); RBC,URINE 0-5 /hpf (0-5)
[2024-08-18 11:16] VITALS: BP 113/64; PULSE 80
== END 2024-08-18 11:12 | disposition home or self-care (01) ==
LOC: JD.ED 06:31
DX: R00.2 Palpitations (principal); R50.9 Fever, unspecified; R74.01 Elevation of levels of liver transaminase levels
CPT/HCPCS: 0241U; 36415; 71046; 80053; 81001; 83605; 84439; 84443; 84484; 85007; 85027; 85610; 86140; 87040; 93005; 96361; 96374; 99284; J2405; J3490; J7030